=== PATIENT | female | born 2000 | race Caucasian/White ===

== ENCOUNTER 2021-04-12 21:13 | Emergency (ER) | payer OTHER ==
[~2021-04-12] VITALS: Ht 170.2 cm; Wt 83.9 kg
[2021-04-12 21:36] VITALS: BP_SYST 148
--- NOTE | 2021-04-12 21:36 | NUR ---
Patient to ER bed 5 to gown for evaluation. Side rails up. Report given to Calin.
--- NOTE | 2021-04-12 21:40 | NUR ---
PT ARRIVED TO ER WITH COMPLAINTS OF CP SINCE YESTERDAY 1800. PAIN WAS INTITALLY 02/07. PT STATED THIS HAS HAPPENED BEFORE AND IT WAS A PANIC ATTACK. BUT IT DIDNT RESOLVE THIS TIME. PT IS DIZZY NOW. PT STATES NO ILLICIT DRUGS WERE TAKEN. PT IS RESTING CALMLY IN BED AND HAS COMPLAINSTS OF PAIN /10.
[2021-04-12] MEDS ORDERED: IBUP-1971 PO (22:17)
[2021-04-12] MEDS ORDERED: KETOROLAC TROMETHAMINE 60 MG/2 ML VIAL IM ONE ×2 (22:45→22:49)
--- NOTE | 2021-04-12 22:47 | NUR ---
Medicated w/ toradol 60mg im per MD orders. Will observe for any adverse reaction. Bed to low position sr up.
[2021-04-12 22:51] VITALS: BP_SYST 150
--- NOTE | 2021-04-12 22:55 | NUR ---
Patient given written and verbal discharge instructions and verbalizes understanding. ER MD discussed with patient the results and treatment provided. Patient in stable condition. ID arm band removed. Rx of given. Patient educated on pain management and to follow up with PMD. Pain Scale [5. Opportunity for questions provided and answered. Medication side effect fact sheet provided. No adverse reaction noted to medication.
== END 2021-04-12 22:55 | disposition home or self-care (01) ==
LOC: SED 21:13
DX: R07.89 Other chest pain (principal); J45.909 Unspecified asthma, uncomplicated
CPT/HCPCS: 81025; 93005; 96372; 99283; J1885

== ENCOUNTER 2021-04-21 12:32 | Emergency (ER) | payer OTHER ==
[~2021-04-21] VITALS: Ht 162.6 cm; Wt 88.5 kg
[2021-04-21 12:18] LABS: BASOPHILS # (AUTO) 0.1 K/uL (0.0-0.2); BASOPHILS % (AUTO) 0.9 % (0.0-2.0); EOSINOPHILS # (AUTO) 0.1 K/uL (0.0-0.4); EOSINOPHILS % (AUTO) 1.8 % (0.0-4.0); HEMOGLOBIN 13.8 g/dL (12.0-16.0); MEAN CORPUSCULAR HEMOGLOBIN 31 pg (27-31); MEAN CORPUSCULAR HGB CONC 35 % (32-36); MEAN CORPUSCULAR VOLUME 89 fL (79.0-98.0); MONOCYTES # (AUTO) 0.3 K/uL (0.0-1.0); MONOCYTES % (AUTO) 4.6 % (1.7-9.3); NEUTROPHILS # (AUTO) 3.1 K/uL (1.8-7.7); NEUTROPHILS % (AUTO) 55.7 % (40.0-70.0); PLATELET COUNT (AUTO) 335 K/uL (130-430); RED BLOOD CELL COUNT(AUTO) 4.49 MIL/uL (4.2-6.2); RED CELL DISTRIBUTION WIDTH 12.4 % (9.0-15.0); WHITE BLOOD COUNT (AUTO) 5.5 K/uL (4.8-10.8)
[2021-04-21 12:23] LABS: BILIRUBIN,URINE NEGATIVE (NEGATIVE); BLOOD, URINE NEGATIVE (NEGATIVE); CLARITY/URINE CLEAR (CLEAR); COLOR,URINE YELLOW (YELLOW); GLUCOSE,URINE NEGATIVE (NEGATIVE); KETONES,URINE NEGATIVE (NEGATIVE); LEUKOCYTE ESTERASE ,URINE 1+ (NEGATIVE); NITRITE, URINE NEGATIVE (NEGATIVE); PH,URINE 6.5 (5.0-8.0); PROTEIN URINE NEGATIVE (NEGATIVE); UROBILINOGEN,URINE 0.2 (0.2-1.0)
[~2021-04-21 12:32] MED LIST: IBUP-1971 PO
[2021-04-21 12:38] LABS: BACTERIA,URINE FEW /HPF (None Seen); RBC,URINE 0-3 /HPF (0-3)
[2021-04-21 12:47] LABS: TOTAL IRON BIND. CAPACITY 319 ug/dL (250-450)
[2021-04-21 12:56] LABS: ALBUMIN 4.2 g/dL (3.4-4.8); BILIRUBIN,DIRECT 0.1 mg/dL (0.0-0.3); CALCIUM 9.4 mg/dL (8.4-11.0); CREATININE 0.62 mg/dL (0.55-1.30); FREE T4 (FREE THYROXINE) 0.7 ng/dL (0.6-1.6); POTASSIUM 4.2 mmol/L (3.5-5.1); THYROID STIMULATING HORMONE 1.3 uIu/mL (0.34-4.82); TOTAL BILIRUBIN 0.4 mg/dL (0.0-1.0); URIC ACID 5.2 mg/dL (2.4-7.0)
[2021-04-21 13:03] VITALS: BP_SYST 156
--- NOTE | 2021-04-21 13:03 | NUR ---
Patient to ER bed 7 to gown for evaluation. Side rails up. Report given to SOMMER HOWARD.
--- NOTE | 2021-04-21 13:05 | NUR ---
PT C/O HTN, KEYES X 2 DAYS.PT REPORTS H/O MIGRAINE KEYES AND PANIC ATTACK.
--- NOTE | 2021-04-21 13:08 | NUR ---
PT RECEIVED BLOOD DRAW VIA ORDERS RECEIVED FROM OSMANY
--- NOTE | 2021-04-21 13:15 | NUR ---
ER at bedside examining patient.
[2021-04-21 13:47] VITALS: BP_SYST 146
--- NOTE | 2021-04-21 13:48 | NUR ---
Patient and pt's mother given written and verbal discharge instructions and verbalizes understanding. ER discussed with patient and pt's mother the results and treatment provided. Patient in stable condition. ID arm band removed. No Rx given. Patient educated on pain management and to follow up with PMD. Pain Scale 0/10. Opportunity for questions provided and answered. Medication side effect fact sheet provided.
[2021-04-22 06:06] LABS: HEMOGLOBIN A1C 5.4 % (4.8-5.6)
[2021-04-22 07:07] LABS: FOLATE (FOLIC ACID) 6.7 ng/mL (>3.0); TRIIODOTHYRONINE, FREE 3.5 pg/mL (2.0-4.4)
[2021-04-23 09:06] LABS: VIT D,1, 25-DIHYDROXY 43.5 pg/mL (19.9-79.3)
== END 2021-04-21 13:47 | disposition home or self-care (01) ==
LOC: EDSTATUS 12:32 → SED 12:44
DX: I16.0 Hypertensive urgency (principal); J45.909 Unspecified asthma, uncomplicated; Z79.899 Other long term (current) drug therapy
CPT/HCPCS: 36415; 80048; 80061; 80076; 81000; 82306; 82607; 82746; 83036; 83540; 83550; 84439; 84443; 84481; 84550; 85025; 99283

== ENCOUNTER 2021-10-28 18:01 | Emergency (ER) | payer OTHER ==
[~2021-10-28] VITALS: Ht 170.2 cm; Wt 84.8 kg
[2021-10-28 18:07] VITALS: BP_SYST 136
[2021-10-28] MEDS ORDERED: ACETAMINOPHEN 500 MG TABLET PO ONE (18:15)
[2021-10-28] MEDS ORDERED: KETOROLAC TROMETHAMINE 60 MG/2 ML VIAL IM ONE (18:15)
[2021-10-28] MEDS ORDERED: IBUP-1969 PO (18:19)
[2021-10-28] MEDS ORDERED: ACET-2634 PO (18:19)
[2021-10-28 19:35] VITALS: BP_SYST 129
== END 2021-10-28 19:37 | disposition home or self-care (01) ==
LOC: SED 18:01
DX: S06.0X0A Concussion without loss of consciousness, initial encounter (principal); J45.909 Unspecified asthma, uncomplicated; Z79.899 Other long term (current) drug therapy; V49.49XA Driver injured in collision with other motor vehicles in traffic accident, initial encounter; Y93.89 Activity, other specified; Y92.89 Other specified places as the place of occurrence of the external cause; Y99.8 Other external cause status
CPT/HCPCS: 99282; J1885